=== PATIENT | female | born 2000 | race Caucasian/White ===

== ENCOUNTER 2022-03-12 15:35 | Emergency (ER) | payer OTHER ==
[~2022-03-12] VITALS: Ht 157.5 cm; Wt 55.8 kg
[2022-03-12 15:42] VITALS: BP 142/79
--- NOTE | 2022-03-12 15:46 | NUR ---
AMBULATED TO BED 9
--- NOTE | 2022-03-12 15:59 | NUR ---
21 Y/O FEMALE BIB SELF, PRESENTS TO THE ED FOR FOREIGN BODY. PER PT SHE PUT A TAMPON IN AT 1AM. REPORTS "I FORGOT I PUT IT IN AND I HAD SEX AND FELL ASLEEP AND STUFF" STATES THIS MORNING SHE ATTEMPTED TO PULL IT OUT BUT IS UNABLE TO. DENIES PAIN, FEVERS, CHILL, N/V/D. DENIES ANY VAGINAL DISCHARGE, BLEEDING PMH: DENIES NKA
--- NOTE | 2022-03-12 16:13 | NUR ---
Female Hide Inspector accompanied female patient for Pelvic Exam.
--- NOTE | 2022-03-12 16:39 | NUR ---
Patient discharged with v/s stable. Written and verbal after care instructions ABOUT VAGINAL FOREIGN BODY given and explained. Patient verbalized understanding. Ambulatory with steady gait. All questions addressed prior to discharge. Advised to follow up with PMD.
== END 2022-03-12 16:39 | disposition home or self-care (01) ==
LOC: MED 15:35
DX: T19.2XXA Foreign body in vulva and vagina, initial encounter (principal); X58.XXXA Exposure to other specified factors, initial encounter; Y93.89 Activity, other specified; Y92.89 Other specified places as the place of occurrence of the external cause; Y99.8 Other external cause status
CPT/HCPCS: 81002; 99284